=== PATIENT | female | born 1975 | race Caucasian/White ===

== ENCOUNTER 2025-05-22 07:25 | Emergency (ER) | payer BC ==
[~2025-05-22] VITALS: Ht 154.9 cm; Wt 92.5 kg
--- NOTE | 2025-05-22 07:46 | ERN ---
General Chief Complaint: Dizzy/Light Headed Stated Complaint: DIZZINESS Time Seen by MD: 07:30 History of Present Illness Initial Comments 50-year-old female, history of hypothyroidism on levothyroxine, presents for vertigo type symptoms. Patient went to bed last night in her normal state of health. She woke up this morning with the feeling of vertigo/spinning. She feels lightheaded. No headache. No vomiting. No focal neurologic deficits. She has had no recent ear infections or congestion. She reports she has had an episode similar to this in the past she resolved on its own. No vision changes or blurriness. Allergies: Coded Allergies: Penicillins (Unverified Allergy, Unknown, 05/22/25) Past Medical History Past Medical History: Hypothyroid Past Surgical History: None ROS Dictation CONSTITUTIONAL: No chills, no fever, no weakness, no diaphoresis, no malaise. HEAD/FACE: No signs of trauma. EENT: No eye pain, no blurred vision, no tearing, no double vision, no ear pain, no ear discharge, no nose pain, no nasal congestion, no throat pain, no throat swelling, no mouth pain. RESPIRATORY: No cough, no orthopnea, no SOB, no stridor, no wheezing. CARDIOVASCULAR: No chest pain, no edema, no palpitations, no syncope. GASTROINTESTINAL/ABDOMINAL: No abdominal pain, no constipation, no diarrhea, no nausea, no vomiting. GENITOURINARY: No abnormal discharge, no dysuria, no frequent urination, no hematuria. No complaints of pain in the genitals. MUSCULOSKELETAL: No back pain, no gout, no joint pain, no joint swelling, no muscle pain, no muscle stiffness, no neck pain. INTEGUMENTARY: No change in color, no change in hair/nails, no dryness, no lesion, no lumps, no rash. NEUROLOGICAL/PSYCH: Vertigo HEMATOLOGIC/LYMPHATIC: Not anemic, no history of blood clots, no apparent bleeding, no bruising, glands not swollen. All Systems Negative, Except as Noted. Physical Exam Physical Exam Dictation VITAL SIGNS: Reviewed. GENERAL APPEARANCE: Alert, oriented x3, no acute distress, obese. HEAD AND FACE: Non-traumatic. EYES: PERRL, pink conjunctivas, eyelid no trauma, anterior chamber clear. EARS: Pinnas intact and no signs of trauma or erythema. Ear canals clear and no discharge. TMs no erythema. NOSE: No discharge, no bleeding. OROPHARYNX: Mouth normal, teeth no caries, tongue pink. Pharynx clear, no erythema. Tonsils no exudates, no abscesses noted. Mucous membrane moist. NECK: Supple, non-tender, no thyromegaly, no masses, no JVD, no bruits. BREAST: Deferred. CHEST: No tenderness, no crepitus, no paradoxical movement, no retractions. LUNGS: Clear, well-ventilated, symmetric, no rales, no wheezing, no rhonchi, no stridor, good breath sounds bilaterally. HEART: Regular rate, regular rhythm, no murmur, no gallops. VASCULAR: No peripheral edema. ABDOMEN: Soft, positive bowel sounds, nondistended, no guarding, nontender, no rebound, no masses no hepatomegaly, no splenomegaly, no Watson's sign, no hernias. RECTAL: Deferred. GENITAL: Deferred. NEUROLOGICAL: Normal speech, gross motor function intact, gross sensory function intact. MUSCULOSKELETAL: Neck nontender, full range of motion, back nontender, full range of motion. EXTREMITIES: Nontender, full range of motion. SKIN: Color pink, dry, no turgor, no rash, no lacerations, no abrasions, no contusions. LYMPHATICS: Deferred. Results Laboratory and Microbiology Lab and Micro Result Laboratory Tests Test 05/22/25 08:00 White Blood Count 5.2 K/uL (4.8-10.8) Red Blood Count 4.62 MIL/uL (4.00-5.50) Hemoglobin 14.2 g/dL (12.0-16.0) Hematocrit 41.1 % (36-48) Mean Corpuscular Volume 89.0 fL (79-99) Mean Corpuscular Hemoglobin 30.7 pg (27.0-33.0) Mean Corpuscular Hemoglobin Concent 34.5 g/dL (32.0-36.0) Red Cell Distribution Width 12.6 % (11.0-15.5) Platelet Count 239 K/uL (130-400) Mean Platelet Volume 9.3 fL (7.5-10.5) Immature Granulocyte % (Auto) 0.2 % (0-1) Neutrophils (%) (Auto) 57.3 % (40.0-77.0) Lymphocytes (%) (Auto) 31.1 % (21.0-51.0) Monocytes (%) (Auto) 7.5 % (3.0-13.0) Eosinophils (%) (Auto) 3.1 % (0.0-8.0) Basophils (%) (Auto) 0.8 % (0.0-5.0) Neutrophils # (Auto) 3.0 K/uL (1.8-7.7) Lymphocytes # (Auto) 1.6 K/uL (1.0-4.8) Monocytes # (Auto) 0.4 K/uL (0.1-1.0) Eosinophils # (Auto) 0.16 K/uL (0.00-0.70) Basophils # (Auto) 0.04 K/uL (0.00-0.20) Absolute Immature Granulocyte (auto 0.01 K/uL (0-1) Nucleated Red Blood Cells 0.0 % (0.0-0.19) Prothrombin Time 10.0 SEC (9.6-11.6) Prothromb Time International Ratio 0.94 (0.85-1.15) Activated Partial Thromboplast Time 27.6 SEC (26.3-35.5) Sodium Level 137 mmol/L (136-145) Potassium Level 3.8 mmol/L (3.5-5.1) Chloride Level 103 mmol/L (101-111) Carbon Dioxide Level 26 mmol/L (21-32) Blood Urea Nitrogen 13 mg/dL (7-18) Creatinine 0.7 mg/dL (0.5-1.0) Glomerular Filtration Rate Calc 104 mL/min (>90) Random Glucose 152 mg/dL (70-105) H Total Calcium 8.5 mg/dL (8.5-10.1) Total Creatine Kinase 52 U/L (21-232) Troponin I High Sensitivity < 4.0 ng/L (4-50) L MDM CC: Vertigo Historian: Patient Comorbidities: Obesity, hypothyroidism Limitations by social determinants of health: None Differential diagnosis: Benign positional vertigo, ear infection, symptoms. Vital signs: Stable. Initial clinical examination is unremarkable. PERRL, EOMI, [id number] normal. No focal neurologic deficits. NIHSS of 0. Low suspicion for central stroke at this time, appears to be benign positional vertigo. Plan: Labs, IV fluids, meclizine and Valium. Reasses. EKG (independently interpreted by me): NSR, rate 73, normal axis, good RWP, intervals WNL, no STEMI. Labs (independently interpreted by me): CBC is normal. Chemistries normal. Troponin normal. Coags normal. Re-evaluation: I re-evaluated the patient, her NIHSS is 0. She reports dramatic decrease of her symptoms. She is ambulatory p.o. tolerant. There was no signs of central stroke. Likely BPPV which has dramatically improved since arriving here in the ER with treatment. Prescriptions: Meclizine, Valium as needed. We will DC with BPPV diagnosis. Recommend PCP follow up. Oral intake. Return to the emergency department as needed. ED Course Orders Procedure Category Date Status Time Cardiac Panel LAB 05/22/25 Complete 07:38 Cbc With Differential LAB 05/22/25 Complete 07:38 Basic Metabolic Panel LAB 05/22/25 Complete 07:38 Prothrombin Time With LAB 05/22/25 Complete INR 07:38 Partial LAB 05/22/25 Complete Thromboplastin Time 07:38 Lactated Ringers PHA 05/22/25 Complete 1000ml (Lactated 08:00 12 Lead Ekg Tracing- EKG 05/22/25 Complete Technical 07:38 Meclizine Hcl 25 Mg PHA 05/22/25 Complete (Antivert 25 Mg) 08:00 Diazepam 5 Mg/Ml 2 Ml PHA 05/22/25 Complete Syg (Valium 5 Mg/M 08:00 Current Medications Medications (Trade) Dose Ordered Sig/Pinky Route PRN Reason Start Time Stop Time Status Last Admin Dose Admin Diazepam (VALium 5 MG/ML 2 ML SYG) 5 mg ONCE ONCE IVP 05/22/25 08:00 05/22/25 08:01 DC 05/22/25 07:55 Lactated Ringer's 1,000 ml @ 0 mls/hr ONCE ONCE IV 05/22/25 08:00 05/22/25 08:01 DC 05/22/25 07:55 Meclizine HCl (ANTIvert 25 mg) 25 mg ONCE ONCE PO 05/22/25 08:00 05/22/25 08:01 DC 05/22/25 07:55 Vital Signs Date Time Temp Pulse Resp B/P (MAP) Pulse Ox O2 Delivery O2 Flow Rate FiO2 05/22/25 08:54 97.5 61 14 153/87 100 Room Air* 0 21 05/22/25 07:43 81 22 151/90 100 Room Air* 0 21 05/22/25 07:29 97.5 91 20 143/88 99 Room Air DX & DISP Disposition: Discharge Departure Impression: Primary Impression: Benign positional vertigo Condition: Stable Scripts Diazepam (Valium) 2 Mg Tablet 1 TAB PO TID PRN for dizziness for 5 Days, #15 TAB 0 Refills Prov: MARLIN VILLANUEVA DO 05/22/25 Meclizine HCl (Meclizine HCl) 25 Mg Tablet 25 MG PO TID for dizziness, #30 TAB Prov: MARLIN VILLANUEVA DO 05/22/25 Additional Instructions: Your symptoms are consistent with benign positional vertigo, a condition were small calcium protocols in the inner shift out of place and affect your balance. You received IV fluids, meclizine, and IV Valium to help control your dizziness. I have prescribed meclizine and Valium to use as needed for your symptoms. I recommend taking meclizine 3 times a day for acute dizziness. If this medicine does not work, 30 minutes later you can take a Valium. I recommend that you rest over the next day or two. Move slowly and carefully. Sudden movements can trigger dizziness. Drink plenty of liquids. Dehydration can exacerbate symptoms. As we discussed, the Sparkle maneuver may help with your symptoms. Watching a YouTube video on how to perform the Sparkle maneuver. Please return to the emergency department if you have new or worsening weakness, numbness, slurred speech, vision changes, severe headache, fainting, or any other concerning symptoms. If you continue with symptoms over the next few days, I recommend he follow up with her primary doctor. You may need re-evaluation or a referral to an ENT specialist. Referrals: SELF,REFERRAL (PCP) MARLIN VILLANUEVA DO May 22, 2025 07:46
--- NOTE | 2025-05-22 07:50 | EKG ---
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
[2025-05-22] MEDS: LACTATED RINGERS 1000ML 1,000 ML IV ONE (07:55)
[2025-05-22 08:05] LABS: IMMATURE GRANULOCYTE ABSOLUTE 0.01 K/uL (0-1); NUCLEATED RED BLOOD CELLS 0.0 % (0.0-0.19); PLATELET COUNT (AUTO) 239 K/uL (130-400); RED BLOOD CELL COUNT(AUTO) 4.62 MIL/uL (4.00-5.50); RED CELL DISTRIBUTION WIDTH 12.6 % (11.0-15.5); WHITE BLOOD COUNT (AUTO) 5.2 K/uL (4.8-10.8)
[2025-05-22 08:14] LABS: INR 0.94 (0.85-1.15)
[2025-05-22 08:20] LABS: CREATININE 0.7 mg/dL (0.5-1.0); GLOMERULAR FILTR. RATE CALC 104 mL/min (>90); GLUCOSE,RANDOM 152 mg/dL (70-105); SODIUM SERUM 137 mmol/L (136-145); UREA NITROGEN, BLOOD 13 mg/dL (7-18)
[2025-05-22 08:28] LABS: CREATINE KINASE, TOTAL 52 U/L (21-232)
[2025-05-22] MEDS ORDERED: MECL-302 PO (09:24)
[2025-05-22] MEDS ORDERED: DIAZ2TAB PO (09:24)
[2025-05-22 09:37] VITALS: BP 150/85; PULSE 65; RESP 14; TEMP 97.5; O2SAT 99
== END 2025-05-22 09:37 | disposition home or self-care (01) ==
LOC: EDH 07:25
DX: H81.10 Benign paroxysmal vertigo, unspecified ear (principal); E03.9 Hypothyroidism, unspecified; E66.9 Obesity, unspecified; Z88.0 Allergy status to penicillin; Z68.38 Body mass index [BMI] 38.0-38.9, adult
CPT/HCPCS: 99284; 96374; 96361; 82550; 84484; 80048; 85025; 85610; 85730; 36415; 93005; J7120; J3360